=== PATIENT | female | born 1990 | race Caucasian/White ===

== ENCOUNTER 2017-09-02 10:05 | Day surgery (SDC) | payer BC, OTHER ==
[~2017-09-02 10:05] MED LIST: FENTANYL CITRATE INJ/PF 100 MCG/2 ML AMPUL ONE; MIDAZOLAM 2 MG/2 ML INJ ONE; PROPOFOL INJ 200 MG/20 ML VIAL IV ONE
[2017-09-02] MEDS ORDERED: PROPOFOL INJ 200 MG/20 ML VIAL IV ONE (11:16)
[2017-09-02 12:08] VITALS: BP 116/80
--- NOTE | 2017-09-02 13:21 | Operative Report ---
Operative Report DATE OF SURGERY: 09/02/17 Operative Report: The risks, benefits and alternatives of the procedure including risks of bleeding, perforation requiring surgery are explained to the patient in detail and informed consent was obtained. Patient was taken to the endoscopy suite and placed in the left, lateral decubital position. Timeout was called. Propofol medications administered. A rectal examination is done which did not reveal any masses, tears or fissures. An Olympus videoscope was inserted into the patient's rectum. The scope was then carefully advanced all the way to the cecum. The cecum was identified by the usual anatomical landmarks including the ileocecal valve as well as the appendiceal office. Photodocumentation is obtained. The scope was then sequentially pulled back via the various segments of the colon including the ascending colon, hepatic flexure, transverse colon, splenic flexure, descending colon and finding to the rectosigmoid portions of the colon. Retroflexion maneuvers performed. The risks benefits and alternatives of the procedure explained to the patient in detail and informed consent is obtained .A GIF Olympus video scope was inserted into the patient's mouth and hypopharynx, the esophagus is identified intubated and insufflated, the scope was then advanced through the esophagus stomach and duodenum, retroflexion maneuver is done ,the esophagus stomach and first and second portions of the duodenum examined PREOPERATIVE DIAGNOSIS: Blood in stool. Epigastric pain POSTOPERATIVE DIAGNOSIS: Colon polyp that is snared and removed. This was noted in the sigmoid area. Another colon polyp biopsy to remove. Right side colon Inflammation status post biopsy. Internal hemorrhoids. Gastritis status post biopsy rule out Helicobacter pylori OPERATION: Colonoscopy with snare polypectomy. Colonoscopy with biopsy. EGD with biopsy SURGEON: JERRY COHEN ANESTHESIA: LMAC TISSUE REMOVED OR ALTERED: As noted above. COMPLICATIONS: None. ESTIMATED BLOOD LOSS: None. INTRAOPERATIVE FINDINGS: As noted above. PROCEDURE: Patient tolerated procedure well. No immediate postprocedure complications are noted. Patient discharged in good condition. Discharge date 09/02/2017. Discharge diet: Regular. Discharge activity: Regular. 2-3 week follow-up to discuss findings. 3 year surveillance colonoscopy. Patient is instructed to call the office or proceed to the emergency room should there be any further problems or questions. We will wait on pathology.
== END 2017-09-02 11:58 | disposition home or self-care (01) ==
LOC: END 10:05
PROVIDERS: ATTEND Internal Medicine Gastroenterology
PROC: 0DB68ZX Excision of Stomach, Via Natural or Artificial Opening Endoscopic, Diagnostic (ICD-10-PCS; principal; 2017-09-02 13:00)
PROC: 0DBF8ZX Excision of Right Large Intestine, Via Natural or Artificial Opening Endoscopic, Diagnostic (ICD-10-PCS; 2017-09-02 13:00)
PROC: 0DBN8ZX Excision of Sigmoid Colon, Via Natural or Artificial Opening Endoscopic, Diagnostic (ICD-10-PCS; 2017-09-02 13:00)
DX: K62.5 Hemorrhage of anus and rectum (principal); K64.8 Other hemorrhoids; K63.5 Polyp of colon; K52.9 Noninfective gastroenteritis and colitis, unspecified; K29.50 Unspecified chronic gastritis without bleeding; D12.5 Benign neoplasm of sigmoid colon; Z79.899 Other long term (current) drug therapy
CPT/HCPCS: 43239; 45380; 45385; 81025; 88305 ×2; J2704; 811; J2250; J3010

== ENCOUNTER 2017-09-06 10:00 | Observation (INO) | payer OTHER ==
--- NOTE | 2017-09-06 10:28 | ER Document Report ---
ED Medical Screen (RME) - General Chief Complaint: Rectal Bleeding Stated Complaint: RECTAL BLEEDING Time Seen by Provider: 09/06/17 10:24 Mode of Arrival: Ambulatory Information source: Patient Notes: 27-year-old female who had recent endoscopy colonoscopy with polyp removal in colon and stomach as well as internal hemorrhoids presents with complaints of rectal bleeding. Patient notes she contacted her GI specialist Dr. Castillo who stated that this is normal and that she has internal hemorrhoids however today she began having further clots Patient notes she feels dizzy I have greeted and performed a rapid initial assessment of this patient. A comprehensive ED assessment and evaluation of the patient, analysis of test results and completion of the medical decision making process will be conducted by additional ED providers. PHYSICAL EXAMINATION: GENERAL: Well-appearing, well-nourished and in no acute distress. HEAD: Atraumatic, normocephalic. EYES: Pupils equal round extraocular movements intact, conjunctiva are normal. ENT: Nares patent NECK: Normal range of motion LUNGS: No respiratory distress Musculoskeletal: Normal range of motion NEUROLOGICAL: Normal speech, normal gait. PSYCH: Normal mood, normal affect. SKIN: Warm, Dry, normal turgor, no rashes or lesions noted. TRAVEL OUTSIDE OF THE [place] IN LAST 30 DAYS: No - Related Data Allergies/Adverse Reactions: No Known Allergies Allergy (Verified 09/02/17 10:10) Past Medical History - Social History Chew tobacco use (# tins/day): No Frequency of alcohol use: Occasional Drug Abuse: None - Past Medical History Cardiac Medical History: Denies: Hx Coronary Artery Disease, Hx Heart Attack, Hx Hypertension Pulmonary Medical History: Denies: Hx Asthma, Hx Bronchitis, Hx COPD, Hx Pneumonia Neurological Medical History: Denies: Hx Cerebrovascular Accident, Hx Seizures Renal/ Medical History: Denies: Hx Peritoneal Dialysis Musculoskeltal Medical History: Denies Hx Arthritis Past Surgical History: Reports: Hx Tonsillectomy - T&A - Immunizations Hx Diphtheria, Pertussis, Tetanus Vaccination: Yes Influenza Administration Date for 05/2017 - 10/2017 Season: 06/19/17
[2017-09-06 10:56] LABS: ABSOLUTE LYMPHOCYTES (AUTO) 1.4 10^3/uL (0.5-4.7); ABSOLUTE MONOCYTES (AUTO) 0.5 10^3/uL (0.1-1.4); ABSOLUTE NEUT (AUTO) 5.2 10^3/uL (1.7-8.2); BASOPHILS % (AUTO) 0.5 % (0-2); EOSINOPHILS % (AUTO) 0.1 % (0-6); HEMATOCRIT 44.5 % (36.0-47.0); HEMOGLOBIN 15.4 g/dL (12.0-15.5); LYMPHOCYTES % (AUTO) 19.1 % (13-45); MEAN CORPUSCULAR HEMOGLOBIN 32.9 pg (27.0-33.4); MEAN CORPUSCULAR HGB CONC 34.7 g/dL (32.0-36.0); MEAN CORPUSCULAR VOLUME 95 fl (80-97); MONOCYTES % (AUTO) 7.4 % (3-13); PLATELET COUNT 331 10^3/uL (150-450); RED BLOOD COUNT 4.68 10^6/uL (3.72-5.28); RED CELL DISTRIBUTION WIDTH 13.3 % (11.5-14.0); SEGMENTED NEUTROPHILS % (AUTO) 72.9 % (42-78); TOTAL CELLS COUNTED % (AUTO) 100 %; WHITE BLOOD COUNT 7.2 10^3/uL (4.0-10.5)
[2017-09-06 11:01] LABS: INTERNATIONAL RATION (INR) 0.93; PROTHROMBIN TIME 13.1 SEC (11.4-15.4)
[2017-09-06 11:20] LABS: ALANINE AMINOTRANSFERASE 34 U/L (9-52); ALBUMIN 4.8 g/dL (3.5-5.0); ALKALINE PHOSPHATASE 88 U/L (38-126); ANION GAP 12 (5-19); ASPARTATE AMINO TRANSFERASE 23 U/L (14-36); BILIRUBIN,DIRECT 0.3 mg/dL (0.0-0.4); BILIRUBIN,TOTAL 1.2 mg/dL (0.2-1.3); BLOOD UREA NITROGEN 11 mg/dL (7-20); CALCIUM 10.6 mg/dL (8.4-10.2); CARBON DIOXIDE 26 mmol/L (22-30); CHLORIDE 104 mmol/L (98-107); GLUCOSE 85 mg/dL (75-110); POTASSIUM 4.2 mmol/L (3.6-5.0); SODIUM 141.5 mmol/L (137-145); TOTAL PROTEIN 7.6 g/dL (6.3-8.2)
--- NOTE | 2017-09-06 11:50 | ER Document Report ---
ED GI Bleed / Rectal Pain - General Mode of Arrival: Ambulatory Information source: Patient TRAVEL OUTSIDE OF THE [place] IN LAST 30 DAYS: No <KILO LYNCH - Last Filed: 09/06/17 14:51> <TARIQ ROSSI - Last Filed: 09/06/17 18:53> - General Chief Complaint: Rectal Bleeding Stated Complaint: RECTAL BLEEDING Time Seen by Provider: 09/06/17 10:24 Notes: Patient is a 27 year old female that presents to the emergency department today with complaints of rectal bleeding. Patient had a colonoscopy and endoscopy 2 days ago secondary to abdominal pain with rectal bleeding. Patient states yesterday she had a bowel movement with blood mixed in with the stool but today the bleeding has increased and has turned into blood with clots with no stool. Patient states she had 2 polyps removed during her colonoscopy. Patient states when she closes her eyes or stands up she feels dizzy and lightheaded. Patient does admit to using ibuprofen p.m. on a nightly basis. Patient complains of abdominal pain and a headache associated with this rectal bleeding. Patient has a history of migraine headaches but she states this headache today feels "slightly different" because it is "only on one side". Patient denies any shortness of breath. (KILO LYNCH) - Related Data Allergies/Adverse Reactions: No Known Allergies Allergy (Verified 09/02/17 10:10) Past Medical History - General Information source: Patient - Social History Smoking Status: Never Smoker Cigarette use (# per day): No Chew tobacco use (# tins/day): No Frequency of alcohol use: Occasional Drug Abuse: None Lives with: Family Family History: Reviewed & Not Pertinent Patient has suicidal ideation: No Patient has homicidal ideation: No Renal/ Medical History: Denies: Hx Peritoneal Dialysis GI Medical History: Reports: Hx Colonoscopy - 2 polyps removed, Hx Endoscopy Past Surgical History: Reports: Hx Tonsillectomy - T&A - Immunizations Hx Diphtheria, Pertussis, Tetanus Vaccination: Yes <KILO LYNCH - Last Filed: 09/06/17 14:51> Review of Systems - Review of Systems Constitutional: No symptoms reported EENT: No symptoms reported Cardiovascular: See HPI, Dizziness, Lightheaded Respiratory: denies: Short of breath Gastrointestinal: See HPI, Abdominal pain, Rectal bleeding Genitourinary: No symptoms reported Female Genitourinary: No symptoms reported Musculoskeletal: No symptoms reported Skin: No symptoms reported Hematologic/Lymphatic: No symptoms reported Neurological/Psychological: See HPI, Headaches -: Yes All other systems reviewed and negative <KILO LYNCH - Last Filed: 09/06/17 14:51> Physical Exam <KILO LYNCH - Last Filed: 09/06/17 14:51> <TARIQ ROSSI - Last Filed: 09/06/17 18:53> - Vital signs Vitals: Temp Pulse Resp BP Pulse Ox 98.4 F 88 18 128/81 H 99 09/06/17 10:12 09/06/17 10:12 09/06/17 10:12 09/06/17 10:12 09/06/17 10:12 - Notes Notes: PHYSICAL EXAM GENERAL: Alert, interacts well. No acute distress. HEAD: Normocephalic, atraumatic. EYES: Pupils equal, round, and reactive to light. Extraocular movements intact. ENT: Oral mucosa moist, tongue midline. NECK: Full range of motion. Supple. Trachea midline. LUNGS: Clear to auscultation bilaterally, no wheezes, rales, or rhonchi. No respiratory distress. HEART: Regular rate and rhythm. No murmurs, gallops, or rubs. ABDOMEN: Soft, mild left lower quadrant tenderness with palpation, no guarding, rigidity, or rebound. Non-distended. Bowel sounds present in all 4 quadrants. RECTAL: Non-thrombosed external hemorrhoid with no active bleeding, trace amount of blood in the rectal vault, no heavy bleeding, no stool. EXTREMITIES: Moves all 4 extremities spontaneously. No edema, radial and dorsalis pedis pulses 2/4 bilaterally. No cyanosis. NEUROLOGICAL: Alert and oriented x3. Normal speech. PSYCH: Normal affect, normal mood. SKIN: Warm, dry, normal turgor. No rashes or lesions noted. (KILO LYNCH) Course - Laboratory Result Diagrams: 09/06/17 10:39 09/06/17 10:39 <KILO LYNCH - Last Filed: 09/06/17 14:51> - Laboratory Result Diagrams: 09/06/17 10:39 09/06/17 10:39 <TARIQ ROSSI - Last Filed: 09/06/17 18:53> - Re-evaluation Re-evalutation: 09/06/17 12:28 CBC unremarkable, no anemia, coags normal, CMP unremarkable. Rectal examination reveals trace blood however patient has had multiple episodes of bright red blood in the toilet while in the emergency department. Discussed case with Dr. Castillo, he is agreeable to consulting on this case, thinks it is reasonable to admit her overnight and trend her hemoglobin given her lightheadedness and dizziness and ongoing bleeding. I will discuss this case with the hospitalist for possible admission. 09/06/17 12:[address] Rodriguez, accepts the patient to her service as observation. ( TARIQ ROSSI) - Vital Signs Vital signs: Temp Pulse Resp BP Pulse Ox 98.4 F 93 17 122/69 100 09/06/17 15:58 09/06/17 15:58 09/06/17 15:58 09/06/17 15:58 09/06/17 15:58 - Laboratory Laboratory results interpreted by me: 09/06/17 10:39 Calcium 10.6 H Discharge <KILO LYNCH - Last Filed: 09/06/17 14:51> - Discharge Admitting Provider: Hospitalist - Jennifer Unit Admitted: Medical Floor <TARIQ ROSSI - Last Filed: 09/06/17 18:53> - Discharge Clinical Impression: Rectal bleeding Condition: Fair Disposition: ADMITTED OBSERVATION Scribe Attestation: 09/06/17 18:53 I personally performed the services described in the documentation, reviewed and edited the documentation which was dictated to the scribe in my presence, and it accurately records my words and actions. (TARIQ ROSSI) Scribe Documentation - Scribe Written by Scribe:: Cristian Burdick, 09/06/2017 1429 acting as scribe for :: Sindy <KILO LYNCH - Last Filed: 09/06/17 14:51>
[2017-09-06] MEDS ORDERED: ACETAMINOPHEN 325 MG TABLET PO ONE ×2 (12:29→15:45)
[2017-09-06] MEDS ORDERED: ONDANSETRON 4 MG TAB.RAPDIS PO PRN (12:48)
[2017-09-06] MEDS ORDERED: TEMAZEPAM 7.5 MG CAPSULE PO PRN (12:48)
[2017-09-06] MEDS ORDERED: OXYCODONE-ACETAMINOPHEN 5-325 MG TABLET PO PRN (12:48)
[2017-09-06] MEDS ORDERED: MAG HYDROX/AL HYDROX/SIMETH SUSP 30 ML UDCUP PO PRN (12:48)
[2017-09-06] MEDS ORDERED: ONDANSETRON HCL INJ/PF 4 MG/2 ML SDV IV PRN (12:48)
[2017-09-06] MEDS ORDERED: PRAMOXINE HCL/MINERAL OIL/ZNOX OINT 28.3 GM PR PRN (14:56)
--- NOTE | 2017-09-06 15:03 | PDOC H&P ---
History of Present Illness Admission Date/PCP: 09/06/17 13:24 Patient complains of: Rectal bleeding History of Present Illness: BRE DEGROOT is a 27 year old female with no significant past medical history who underwent an EGD and colonoscopy by Dr. Castillo on Saturday for complaint of generalized abdominal pain and gastrocolic reflex. Per the patient, the colonoscopy revealed polyps that were biopsied as well as internal and external hemorrhoids. States that she began having stool streaked with blood shortly with a colonoscopy which have progressively worsened until this morning when she noted that her bowel movements contained blood only with clots and no stool. She states that she has had at least 7 episodes of bloody bowel movements today. She also reports feeling dizzy this morning, however, later in the assessment states that this is her typical vertigo-like symptoms but is associated with her typical headaches/migraine. She normally takes Motrin for her migraines and does take nightly in addition to at least 2 glasses of wine. She denies headache, dizziness, shortness of breath, palpitations, or abdominal pain at present. Initial evaluation in the emergency department is unremarkable with stable vital signs and a hemoglobin of 15.4, normal coags, and a normal chemistry. Given the copious amounts of bright red rectum today the patient will be admitted under observational status overnight to trend hemoglobin. Past Medical History Cardiac Medical History: Reports: None Denies: Coronary Artery Disease, Myocardial Infarction, Hypertension Pulmonary Medical History: Reports: None Denies: Asthma, Bronchitis, Chronic Obstructive Pulmonary Disease (COPD), Pneumonia Neurological Medical History: Reports: Migraine Denies: Seizures Endocrine Medical History: Reports: None Renal/ Medical History: Reports: None Malignancy Medical History: Reports: None GI Medical History: Reports: None Musculoskeltal Medical History: Reports: None Denies: Arthritis Skin Medical History: Reports: None Psychiatric Medical History: Reports: None Traumatic Medical History: Reports: None Hematology: Reports: None Denies: Anemia Infectious Medical History: Reports: None Past Surgical History Past Surgical History: Reports: Tonsillectomy - T&A Social History Information Source: Patient Lives with: Family Smoking Status: Never Smoker Frequency of Alcohol Use: Heavy Hx Recreational Drug Use: No Hx Prescription Drug Abuse: No - Advance Directive Resuscitation Status: Full Code Surrogate healthcare decision maker:: Kit Miramontes; significant other Family History Family History: Other - Ulcerative colitis diverticulitis, gluten allergy Parental Family History Reviewed: Yes Children Family History Reviewed: Yes Sibling(s) Family History Reviewed.: Yes Medication/Allergy Home Medications: Esomeprazole Mag Trihydrate [Nexium] 40 mg PO ACBRKFST 09/06/17 Ibuprofen/Diphenhydramine HCl [Ibuprofen Pm Softgel] 2 each PO QHS 09/06/17 Allergies/Adverse Reactions: No Known Allergies Allergy (Verified 09/02/17 10:10) Review of Systems Constitutional: ABSENT: anorexia, chills, fever(s), headache(s), night sweats, weakness, weight gain, weight loss Eyes: ABSENT: visual disturbances Ears: ABSENT: hearing changes Nose, Mouth, and Throat: PRESENT: headache(s), vertigo. ABSENT: mouth pain, sore throat Cardiovascular: ABSENT: chest pain, dyspnea on exertion, edema, orthropnea, palpitations Respiratory: ABSENT: cough, hemoptysis Gastrointestinal: PRESENT: abdominal pain, other - Bright red blood per rectum. ABSENT: constipation, diarrhea, hematemesis, hematochezia, nausea, vomiting Genitourinary: ABSENT: dysuria, hematuria Musculoskeletal: ABSENT: joint swelling Integumentary: ABSENT: rash, wounds Neurological: ABSENT: abnormal gait, abnormal speech, confusion, dizziness, focal weakness, syncope Psychiatric: ABSENT: anxiety, depression, homidical ideation, suicidal ideation Endocrine: ABSENT: cold intolerance, heat intolerance, polydipsia, polyuria Hematologic/Lymphatic: ABSENT: easy bleeding, easy bruising Physical Exam Vital Signs: Temp Pulse Resp BP Pulse Ox 98.4 F 88 18 128/81 H 99 09/06/17 10:12 09/06/17 10:12 09/06/17 10:12 09/06/17 10:12 09/06/17 10:12 Intake & Output 09/05/17 09/06/17 09/07/17 06:59 06:59 06:59 Weight 95.1 kg General appearance: PRESENT: no acute distress, well-developed, well-nourished Head exam: PRESENT: atraumatic, normocephalic Eye exam: PRESENT: conjunctiva pink, EOMI, PERRLA. ABSENT: scleral icterus Ear exam: PRESENT: normal external ear exam Mouth exam: PRESENT: moist, tongue midline Neck exam: ABSENT: carotid bruit, JVD, lymphadenopathy, thyromegaly Respiratory exam: PRESENT: clear to auscultation renetta. ABSENT: rales, rhonchi, wheezes Cardiovascular exam: PRESENT: RRR. ABSENT: diastolic murmur, rubs, systolic murmur Pulses: PRESENT: normal dorsalis pedis pul Vascular exam: PRESENT: normal capillary refill GI/Abdominal exam: PRESENT: normal bowel sounds, soft. ABSENT: distended, guarding, mass, organolmegaly, rebound, tenderness Rectal exam: PRESENT: deferred Extremities exam: PRESENT: full ROM. ABSENT: calf tenderness, clubbing, pedal edema Neurological exam: PRESENT: alert, awake, oriented to person, oriented to place , oriented to time, oriented to situation, CN II-XII grossly intact. ABSENT: motor sensory deficit Psychiatric exam: PRESENT: appropriate affect, normal mood. ABSENT: homicidal ideation, suicidal ideation Skin exam: PRESENT: dry, intact, warm. ABSENT: cyanosis, rash Assessment & Plan - Diagnosis (1) Rectal bleeding Is this a current diagnosis for this admission?: Yes Plan: The patient is very and seeing bright red blood per rectum 4 days status post colonoscopy with polyp removal. The patient was noted to have internal and external hemorrhoids at that time. Will be admitted to the floor under observational status. Obtain hemoglobin in the morning to establish stability; likely will be able to be discharged at that time to follow-up as scheduled with Dr. Castillo's office. Continue PPI. (2) Hemorrhoids Qualifiers: Hemorrhoid type: unspecified Qualified Code(s): K64.9 - Unspecified hemorrhoids Plan: Internal and external hemorrhoids as noted by colonoscopy on 09/02/16. We will provide Tucks hemorrhoidal ointment as needed. Remaining plan as above. (3) Alcohol dependence Qualifiers: Substance use status: uncomplicated Qualified Code(s): F10.20 - Alcohol dependence, uncomplicated Is this a current diagnosis for this admission?: Yes Plan: The patient reports that she drinks at least 2 glasses of wine nightly. Discussed alcohol reduction. We will monitor for evidence of alcohol withdrawal and treat appropriately with scheduled and as needed benzodiazepines. - Time Time Spent: 50 to 70 Minutes Medications reviewed and adjusted accordingly: Yes Anticipated discharge: Home Within: within 24 hours
[2017-09-06] MEDS ORDERED: GLYCERIN/WITCH HAZEL LEAF 1 EACH MED..PAD TOP PRN (15:16)
[2017-09-07] MEDS ORDERED: LANSOPRAZOLE 30 MG TAB.RAP.DR PO SCH (06:00)
[2017-09-07 07:13] LABS: HEMATOCRIT 39.9 % (36.0-47.0); HEMOGLOBIN 13.9 g/dL (12.0-15.5); MEAN CORPUSCULAR HEMOGLOBIN 33.1 pg (27.0-33.4); MEAN CORPUSCULAR HGB CONC 34.9 g/dL (32.0-36.0); MEAN CORPUSCULAR VOLUME 95 fl (80-97); PLATELET COUNT 277 10^3/uL (150-450); WHITE BLOOD COUNT 4.2 10^3/uL (4.0-10.5)
[2017-09-07 07:37] LABS: ANION GAP 10 (5-19); BLOOD UREA NITROGEN 10 mg/dL (7-20); CALCIUM 9.7 mg/dL (8.4-10.2); CARBON DIOXIDE 25 mmol/L (22-30); CHLORIDE 104 mmol/L (98-107); GLUCOSE 91 mg/dL (75-110); MAGNESIUM 1.9 mg/dL (1.6-2.3); PHOSPHORUS 3.4 mg/dL (2.5-4.5); POTASSIUM 4.3 mmol/L (3.6-5.0); SODIUM 139.4 mmol/L (137-145)
[2017-09-07] MEDS ORDERED: DOCUSATE SODIUM 100 MG CAPSULE PO SCH (10:00)
[2017-09-07 12:33] VITALS: BP 111/78
[2017-09-07 13:48] LABS: HEMATOCRIT 42.4 % (36.0-47.0); HEMOGLOBIN 14.3 g/dL (12.0-15.5); MEAN CORPUSCULAR HEMOGLOBIN 32.5 pg (27.0-33.4); MEAN CORPUSCULAR HGB CONC 33.8 g/dL (32.0-36.0); MEAN CORPUSCULAR VOLUME 96 fl (80-97); PLATELET COUNT 317 10^3/uL (150-450); RED BLOOD COUNT 4.41 10^6/uL (3.72-5.28); RED CELL DISTRIBUTION WIDTH 13.1 % (11.5-14.0); WHITE BLOOD COUNT 7.3 10^3/uL (4.0-10.5)
--- NOTE | 2017-09-07 14:18 | PDOC DISCHARGE SUMMARY ---
General - Admit/Disc Date/PCP Admission Date/Primary Care Provider: 09/06/17 13:24 Discharge Date: 09/07/17 - Discharge Diagnosis (1) Rectal bleeding Is this a current diagnosis for this admission?: Yes (3) Alcohol dependence Is this a current diagnosis for this admission?: Yes - Additional Information Resuscitation Status: Full Code Discharge Diet: As Tolerated Discharge Activity: Activity As Tolerated, Slowly Increase Activity Prescriptions: Docusate Sodium [Colace 100 mg Capsule] 100 mg PO DAILY #30 capsule Home Medications: Esomeprazole Mag Trihydrate [Nexium] 40 mg PO ACBRKFST 09/06/17 Docusate Sodium [Colace 100 mg Capsule] 100 mg PO DAILY #30 capsule 09/07/17 History of Present Illness History of Present Illness: BRE DEGROOT is a 27 year old female with no significant past medical history who underwent an EGD and colonoscopy by Dr. Castillo on Saturday for complaint of generalized abdominal pain and gastrocolic reflex. Per the patient, the colonoscopy revealed polyps that were biopsied as well as internal and external hemorrhoids. States that she began having stool streaked with blood shortly with a colonoscopy which have progressively worsened until this morning when she noted that her bowel movements contained blood only with clots and no stool. She states that she has had at least 7 episodes of bloody bowel movements today. She also reports feeling dizzy this morning, however, later in the assessment states that this is her typical vertigo-like symptoms but is associated with her typical headaches/migraine. She normally takes Motrin for her migraines and does take nightly in addition to at least 2 glasses of wine. She denies headache, dizziness, shortness of breath, palpitations, or abdominal pain at present. Initial evaluation in the emergency department is unremarkable with stable vital signs and a hemoglobin of 15.4, normal coags, and a normal chemistry. Given the copious amounts of bright red rectum today the patient will be admitted under observational status overnight to trend hemoglobin. Hospital Course Hospital Course: The patient was admitted overnight for observation of her bright red blood per rectum secondary to internal and external hemorrhoids. Dr. Castillo, her outside solar sales consultant, was contacted who recommended that she be observed overnight and hemoglobin monitored. The patient did continue to have rectal bleeding, although this did decrease in quantity and became dark in color. Her hemoglobin was trended and appears to be stable at about 14. At time of discharge, the patient is pain-free and with stable vital signs. She is instructed to discontinue NSAIDs and alcohol intake. Recommend begin a stool softener. She is advised to keep her follow-up appointment as it is scheduled with Dr. Castillo on Saturday. Physical Exam Vital Signs: Temp Pulse Resp BP Pulse Ox 97.9 F 102 H 18 111/78 100 09/07/17 11:46 09/07/17 11:46 09/07/17 11:46 09/07/17 11:46 09/07/17 11:46 Intake & Output 09/06/17 09/07/17 09/08/17 06:59 06:59 06:59 Weight 95.1 kg General appearance: PRESENT: no acute distress, well-developed, well-nourished, other - overweight Head exam: PRESENT: atraumatic, normocephalic Eye exam: PRESENT: conjunctiva pink, EOMI, PERRLA. ABSENT: scleral icterus Ear exam: PRESENT: normal external ear exam Mouth exam: PRESENT: moist, tongue midline Neck exam: ABSENT: carotid bruit, JVD, lymphadenopathy, thyromegaly Respiratory exam: PRESENT: clear to auscultation renetta. ABSENT: rales, rhonchi, wheezes Cardiovascular exam: PRESENT: RRR. ABSENT: diastolic murmur, rubs, systolic murmur Pulses: PRESENT: normal dorsalis pedis pul Vascular exam: PRESENT: normal capillary refill GI/Abdominal exam: PRESENT: normal bowel sounds, soft. ABSENT: distended, guarding, mass, organolmegaly, rebound, tenderness Rectal exam: PRESENT: deferred Extremities exam: PRESENT: full ROM. ABSENT: calf tenderness, clubbing, pedal edema Neurological exam: PRESENT: alert, awake, oriented to person, oriented to place , oriented to time, oriented to situation, CN II-XII grossly intact. ABSENT: motor sensory deficit Psychiatric exam: PRESENT: appropriate affect, normal mood. ABSENT: homicidal ideation, suicidal ideation Skin exam: PRESENT: dry, intact, warm. ABSENT: cyanosis, rash Results Laboratory Results: 09/07/17 13:25 09/07/17 06:21 09/07/17 09/07/17 09/07/17 06:21 06:21 13:25 WBC 4.2 7.3 RBC 4.20 4.41 Hgb 13.9 14.3 Hct 39.9 42.4 MCV 95 96 MCH 33.1 32.5 MCHC 34.9 33.8 RDW 13.0 13.1 Plt Count 277 317 Sodium 139.4 Potassium 4.3 Chloride 104 Carbon Dioxide 25 Anion Gap 10 BUN 10 Creatinine 0.62 Est GFR ( Amer) > 60 Est GFR (Non-Af Amer) > 60 Glucose 91 Calcium 9.7 Phosphorus 3.4 Magnesium 1.9 Qualifiers PATEINT BEING DISCHARGED WITH ANY OF THE FOLLOWING DIAGNOSIS?: No
== END 2017-09-07 15:46 | disposition home or self-care (01) ==
LOC: ER 10:00 → EH 13:24 → 4N 15:12
PROVIDERS: ADMIT Internal Medicine; ATTEND Internal Medicine
DX: K62.5 Hemorrhage of anus and rectum (principal); F10.20 Alcohol dependence, uncomplicated; R42 Dizziness and giddiness; R51 Headache; K64.4 Residual hemorrhoidal skin tags; K64.8 Other hemorrhoids; Z83.79 Family history of other diseases of the digestive system; Z86.010 Personal history of colon polyps
CPT/HCPCS: 99284; 36415 ×2; 87045; 87205; 87209; 83735; 84100; 87177; 85025; 85027; 85610; 82272; 80048; 80053; G0378 ×3; J3490

== ENCOUNTER 2017-09-09 13:35 | Day surgery (SDC) | payer OTHER ==
[2017-09-09] MEDS ORDERED: ONDANSETRON HCL INJ/PF 4 MG/2 ML SDV ONE ×2 (13:43→15:08)
[2017-09-09] MEDS ORDERED: DIPHENHYDRAMINE HCL 50 MG/ML VIAL ONE (13:43)
[2017-09-09] MEDS ORDERED: NALOXONE HCL INJ/PF 0.4 MG/1 ML SDV ONE (13:43)
[2017-09-09] MEDS ORDERED: GLUCAGON,HUMAN RECOMB 1 MG INJ ONE (13:44)
[2017-09-09] MEDS ORDERED: FLUMAZENIL INJ 0.5 MG/5 ML VIAL ONE (13:44)
[2017-09-09] MEDS ORDERED: EPINEPHRINE INJ 1 MG/10 ML DISP.SYRIN ONE (13:44)
[2017-09-09] MEDS: MIDAZOLAM 2 MG/2 ML INJ ONE ×4 (14:11→14:20)
[2017-09-09] MEDS: FENTANYL CITRATE INJ/PF 100 MCG/2 ML AMPUL ONE ×2 (14:13→14:18)
--- NOTE | 2017-09-09 14:40 | Operative Report ---
Operative Report DATE OF SURGERY: 09/09/17 Operative Report: The risk , benefits and alternatives of the procedure are explained to the patient in detail patient is taken to the EU unit and placed in a left lateral decubital position Time out is called and conscious sedation medications are provided A GIF scope is placed via the patient's rectum, there is some blood in her rectum the transition point is seen at the first valve of [place] there is a small clot on a ulcer the area is irrigated an Endoclip is placed the base of the ulcer good hemostasis is achieved no other sites of bleeding are noted the patient does have some internal hemorrhoids as well. PREOPERATIVE DIAGNOSIS: rectal bleeding POSTOPERATIVE DIAGNOSIS: rectal ulcer noted, Endoclip is placed OPERATION: flex sig with control of hemorrhage SURGEON: JERRY COHEN ANESTHESIA: Moderate Sedation - 6mg of Versed, 125mcg of Fentanyl are provided. Conscious sedation monitoring time is 30mins TISSUE REMOVED OR ALTERED: none COMPLICATIONS: none ESTIMATED BLOOD LOSS: none INTRAOPERATIVE FINDINGS: as noted above PROCEDURE: patient tolerated her procedure well no post procedure complications patient is discharged in good condition discharge date: 09/09/17 discharge activity : as tolerated discharge diet: as tolerated keep follow up appt to discuss results of pathology patient instructed to call if any other gross bleeding patient advised that stools may be blood tinged, but should not have any other clots further recommendations to follow
[2017-09-09] MEDS ORDERED: ACETAMINOPHEN 325 MG TABLET ONE (15:00)
[2017-09-09 15:45] VITALS: BP 104/75
== END 2017-09-09 15:55 | disposition home or self-care (01) ==
LOC: END 13:35
PROVIDERS: ATTEND Internal Medicine Gastroenterology
PROC: 0W3P8ZZ Control Bleeding in Gastrointestinal Tract, Via Natural or Artificial Opening Endoscopic (ICD-10-PCS; principal; 2017-09-09 14:00)
DX: K64.8 Other hemorrhoids (principal); K62.6 Ulcer of anus and rectum; K92.1 Melena
CPT/HCPCS: 45334; J2250; J3010; J2405; J0171; J1200; J1610; J2310; J3490

== ENCOUNTER 2018-02-21 09:34 | Emergency (ER) | payer OTHER ==
[2018-02-21] MEDS ORDERED: IBUPROFEN 600 MG TABLET PO ONE (10:08)
[2018-02-21] MEDS ORDERED: ACETAMINOPHEN 325 MG TABLET PO ONE (10:08)
[2018-02-21] MEDS ORDERED: AMPICILLIN SOD/SULBACTAM 3 GM VIAL IV ONE (10:08)
[2018-02-21] MEDS ORDERED: DEXAMETHASONE SOD PHOS INJ 10 MG/1 ML VIAL IV ONE (10:10)
--- NOTE | 2018-02-21 10:14 | ER Document Report ---
ED General - General Chief Complaint: Sore Throat Stated Complaint: SORE THROAT Time Seen by Provider: 02/21/18 09:58 Notes: 19-year-old female here with complaints of sore throat for the past 5 days. The day after it started, she went to [facility] and was told that it would eventually go away and that she should take ibuprofen. Today, since the symptoms have not improved she went to an urgent care and was told that she should come to the ER for further evaluation. Her pain is worse with swallowing however she is still able to swallow her saliva without difficulty. She has not had any fevers chills difficulty swallowing breathing facial swelling. TRAVEL OUTSIDE OF THE U.S. IN LAST 30 DAYS: No - Related Data Allergies/Adverse Reactions: No Known Allergies Allergy (Verified 02/21/18 09:35) Past Medical History - Social History Smoking Status: Never Smoker Chew tobacco use (# tins/day): No Frequency of alcohol use: Occasional Drug Abuse: None Family History: Other - Ulcerative colitis diverticulitis, gluten allergy Patient has suicidal ideation: No Patient has homicidal ideation: No - Past Medical History Cardiac Medical History: Denies: Hx Coronary Artery Disease, Hx Heart Attack, Hx Hypertension Pulmonary Medical History: Denies: Hx Asthma, Hx Bronchitis, Hx COPD, Hx Pneumonia Neurological Medical History: Reports: Hx Migraine. Denies: Hx Cerebrovascular Accident, Hx Seizures Renal/ Medical History: Denies: Hx Peritoneal Dialysis GI Medical History: Reports: Hx Colonoscopy - 2 polyps removed, Hx Endoscopy Musculoskeltal Medical History: Denies Hx Arthritis Past Surgical History: Reports: Hx Tonsillectomy - T&A - Immunizations Hx Diphtheria, Pertussis, Tetanus Vaccination: Yes Review of Systems - Review of Systems Notes: See history of present illness for pertinent positive review of systems; otherwise all review of systems have been reviewed and are negative Physical Exam - Vital signs Vitals: Temp Pulse Resp BP Pulse Ox 99.0 F 93 18 127/88 H 98 02/21/18 09:45 02/21/18 09:45 02/21/18 09:45 02/21/18 09:45 02/21/18 09:45 - Notes Notes: PHYSICAL EXAMINATION: GENERAL: Well-appearing and in no acute distress. HEAD: Atraumatic, normocephalic. EYES: Pupils equal round and reactive to light, extraocular movements intact, sclera anicteric, conjunctiva are normal. ENT: nares patent, oropharynx minimal erythema without exudates however there is a small amount of left peritonsillar swelling but no uvular deviation. Moist mucous membranes. Widely patent airway NECK: Normal range of motion, supple without lymphadenopathy LUNGS: CTAB and equal. No wheezes rales or rhonchi. HEART: Regular rate and rhythm without murmurs ABDOMEN: Soft, no tenderness. No facial grimacing/wincing upon palpation. No guarding, no rebound. EXTREMITIES: Normal range of motion, no pitting edema. No cyanosis. NEUROLOGICAL: Cranial nerves grossly intact. Normal sensory/motor exams. PSYCH: Normal mood, normal affect. SKIN: Warm, Dry, normal turgor, no rashes or lesions noted Course - Re-evaluation Re-evalutation: 02/21/18 10:13 MEDICAL DECISION MAKING: Concern for very mild and early peritonsillar abscess Her airway is widely patent and I have low concern for emergency medical condition at this time I will give her a dose of Unasyn and Decadron IV as well as pain medicine I have made her an appointment with Dr. 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 You have an appointment at 3:[address] Pantoja of ear nose and throat. Do not miss this appointment. Here is the address: [address]
[2018-02-21 11:25] VITALS: BP 118/76
== END 2018-02-21 11:21 | disposition home or self-care (01) ==
LOC: ER 09:34
DX: J02.9 Acute pharyngitis, unspecified (principal)
CPT/HCPCS: 99282; 96375; 96365; J0295; J1100

== ENCOUNTER 2018-04-11 09:05 | Emergency (ER) | payer OTHER ==
[2018-04-11 09:12] VITALS: BP 119/86
--- NOTE | 2018-04-11 09:41 | ER Document Report ---
HPI - HPI Patient complains to provider of: Right foot and ankle injury Onset: Yesterday Onset/Duration: Sudden Quality of pain: Achy Pain Level: 4 Context: Patient states she stepped off of a curb wrong and rolled her right foot and ankle. Patient complains of continued pain since then. Associated Symptoms: Other - Right foot and ankle. Exacerbated by: Standing, Movement, Walking Relieved by: Denies Similar symptoms previously: No Recently seen / treated by doctor: No - ROS ROS below otherwise negative: Yes Systems Reviewed and Negative: Yes All other systems reviewed and negative - CONSTITUTIONAL Constitutional: DENIES: Fever, Chills - GASTROINTESTINAL Gastrointestinal: DENIES: Nausea, Patient vomiting - MUSCULOSKELETAL Musculoskeletal: REPORTS: Extremity pain - Right ankle pain and foot pain, Swelling - DERM Skin Color: Normal Skin Problems: None Past Medical History - General Information source: Patient - Social History Smoking Status: Never Smoker Frequency of alcohol use: Occasional Drug Abuse: None 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 Denies: Hx Cerebrovascular Accident, Hx Seizures Renal/ Medical History: Denies: Hx Peritoneal Dialysis GI Medical History: Reports: Hx Colonoscopy - 2 polyps removed, Hx Endoscopy Musculoskeletal Medical History: Denies Hx Arthritis Past Surgical History: Reports: Hx Tonsillectomy - T&A - Immunizations Hx Diphtheria, Pertussis, Tetanus Vaccination: Yes Vertical Provider Document - CONSTITUTIONAL Agree With Documented VS: Yes Exam Limitations: No Limitations General Appearance: WD/WN, No Apparent Distress - INFECTION CONTROL TRAVEL OUTSIDE OF THE [place].S. IN LAST 30 DAYS: No - HEENT HEENT: Atraumatic, Normocephalic - NECK Neck: Normal Inspection - RESPIRATORY Respiratory: No Respiratory Distress - CARDIOVASCULAR Pulses: Normal: Dorsalis pedis - MUSCULOSKELETAL/EXTREMETIES Musculoskeletal/Extremeties: MAEW, FROM, Tender - Right ankle tenderness over bilateral malleolar area, 1+ edema to right ankle lateral malleolus. Patient with right medial midfoot tenderness, normal skin color and temperature overlying joints. No deformity, Edema - NEURO Level of Consciousness: Awake, Alert, Appropriate Motor/Sensory: No Motor Deficit - DERM Integumentary: Warm, Dry, No Rash Course - Vital Signs Vital signs: Temp Pulse Resp BP Pulse Ox 98.1 F 95 16 119/86 H 98 04/11/18 09:10 04/11/18 09:10 04/11/18 09:10 04/11/18 09:10 04/11/18 09:10 - Diagnostic Test Radiology reviewed: Pending, Image reviewed Procedures - Immobilization Right Ankle Pre-Proc Neuro Vasc Exam: Normal Immobilizer type: Ankle stirrup Performed by: PCT Post-Proc Neuro Vasc Exam: Normal Alignment checked and good: Yes Discharge - Discharge Clinical Impression: Right ankle sprain Qualifiers: Encounter type: initial encounter Involved ligament of ankle: unspecified ligament Qualified Code(s): S93.401A - Sprain of unspecified ligament of right ankle, initial encounter Foot pain Qualifiers: Laterality: right Qualified Code(s): M79.671 - Pain in right foot Condition: Stable Disposition: HOME, SELF-CARE Instructions: Ankle Stirrup Splint ([facility]), Use of Crutches ([facility]), Ice & Elevation ([facility]), Sprained Ankle ([facility]) Additional Instructions: Return immediately for any new or worsening symptoms Followup with your primary care provider, call tomorrow to make a followup appointment Weightbearing as tolerated Follow-up with orthopedics for any persistent pain or problems Prescriptions: Naproxen [Naprosyn 250 Nmg Tablet] 1 tab PO BID #14 tablet Forms: Return to Work Referrals: JENNIFER BENJAMIN PA-C [Primary Care Provider] - Follow up as needed [facility] [Provider Group] - Follow up as needed
--- NOTE | 2018-04-11 10:03 | RADIOLOGY REPORT (SQ) ---
EXAM DESCRIPTION: ANKLE RIGHT COMPLETE COMPLETED DATE/TIME: 04/11/2018 9:40 am REASON FOR STUDY: stepped off curb, rolled foot/ankle COMPARISON: None. NUMBER OF VIEWS: Three views. TECHNIQUE: AP, lateral, and oblique radiographic images acquired of the right ankle. LIMITATIONS: None. FINDINGS: MINERALIZATION: Normal. BONES: No acute fracture or dislocation. No worrisome bone lesions. JOINTS: No effusions. SOFT TISSUES: No soft tissue swelling. No foreign body. OTHER: No other significant finding. IMPRESSION: NEGATIVE STUDY OF THE RIGHT ANKLE. NO RADIOGRAPHIC EVIDENCE OF ACUTE INJURY. TECHNICAL DOCUMENTATION: JOB ID: [id number] [employer]- All Rights Reserved Reading location - IP/workstation name: [email or web address]
--- NOTE | 2018-04-11 10:03 | RADIOLOGY REPORT (SQ) ---
EXAM DESCRIPTION: FOOT RIGHT COMPLETE COMPLETED DATE/TIME: 04/11/2018 9:40 am REASON FOR STUDY: stepped off curb, rolled foot/ankle COMPARISON: None. NUMBER OF VIEWS: Three views. TECHNIQUE: AP, lateral and oblique radiographic images acquired of the right foot. LIMITATIONS: None. FINDINGS: MINERALIZATION: Normal. BONES: No acute fracture or dislocation. No worrisome bone lesions. JOINTS: No effusions. SOFT TISSUES: No soft tissue swelling. No foreign body. OTHER: No other significant finding. IMPRESSION: NEGATIVE STUDY OF THE RIGHT FOOT. NO RADIOGRAPHIC EVIDENCE OF ACUTE INJURY. TECHNICAL DOCUMENTATION: JOB ID: [id number] [employer]- All Rights Reserved Reading location - IP/workstation name: [email or web address]
== END 2018-04-11 10:04 | disposition home or self-care (01) ==
LOC: ER 09:05
DX: S93.401A Sprain of unspecified ligament of right ankle, initial encounter (principal); M79.671 Pain in right foot; X50.0XXA Overexertion from strenuous movement or load, initial encounter
CPT/HCPCS: 99283; 73610; 73630; L1902

== ENCOUNTER 2018-10-06 15:15 | Emergency (ER) | payer OTHER | END 2018-10-06 16:30 | disposition left against medical advice (07) | LOC: ER 15:15 | DX: Z53.21 Procedure and treatment not carried out due to patient leaving prior to being seen by health care provider (principal) ==

== ENCOUNTER → 2020-06-20 | Outpatient (CLI) | payer OTHER ==
[2020-06-20 13:52] VITALS: BP 118/71
--- NOTE | 2020-06-20 13:52 | ER RDC ASSESSMENT REPORT ---
Intake - In the Last 14 days Have you traveled outside [place]?: No Have you been in close contact with someone CONFIRMED: No Worked in Healthcare?: No - Symptoms Subjective Fever([place] feverish): No Chills: No Muscule Aches: Yes Runny Nose: No Sore Throat: No Cough (New or worsening chronic cough): Yes Shortness of breath: No Nausea or Vomiting: Yes Headache: No Abdominal Pain: No Diarrhea(3 or more loose stools in last 24 hours): Yes - Do you have any of the following Chronic lung disease: Asthma or emphysema or COPD: No Cystic Fibrosis: No Diabetes: No High Blood Pressure: No Cardiovascular Disease: No Chronic Kidney Disease: No Chronic Liver Disease: No Chronic blood disorder like Sickle Cell Disease: No Weak immune system due to disease or medication: No Neurologic condition that limits movement: No Developmental delay - Moderate to Severe: No Recent (within past 2 weeks) or current : No Morbid Obesity (>100 pounds over ideal weight): No Obesity Comment: Height 5 feet 7 inches weight 226 pounds - Objective Temperature: 98.7 F Pulse Rate: 100 Respiratory Rate: 16 Blood Pressure: 118/71 O2 Sat by Pulse Oximetry: 96 Objective: Given above, testing performed: If Testing Performed: Test Specimen Type Sent to General - General Information source: Patient Notes: Patient here at [facility] for Covid testing patient reports started to have symptoms on Saturday which included dry cough nausea diarrhea fatigue and loss of taste. Patient denies any known positive exposure to Covid that she is aware of [place] and employer recommended patient have Covid testing. Patient sees Dr. Cassidy PCP and will follow up. - Related Data Allergies/Adverse Reactions: No Known Allergies Allergy (Verified 02/21/18 09:35) Past Medical History - General Information source: Patient - Social History Smoking Status: Never Smoker Family History: Reviewed & Not Pertinent, Other - Ulcerative colitis diverticulitis, gluten allergy - Past Medical History Cardiac Medical History: Denies: Hx Coronary Artery Disease, Hx Heart Attack, Hx Hypertension Pulmonary Medical History: Denies: Hx Asthma, Hx Bronchitis, Hx COPD, Hx Pneumonia Neurological Medical History: Reports: Hx Migraine. Denies: Hx Cerebrovascular Accident, Hx Seizures Renal/ Medical History: Denies: Hx Peritoneal Dialysis GI Medical History: Reports: Hx Colonoscopy - 2 polyps removed, Hx Endoscopy Musculoskeletal Medical History: Denies Hx Arthritis Past Surgical History: Reports: Hx Tonsillectomy - T&A Physical Exam - General General appearance: Appears well, Alert In distress: None Notes: PHYSICAL EXAMINATION: GENERAL: Well-appearing and in no acute distress. HEAD: Atraumatic, normocephalic. EYES: sclera anicteric, conjunctiva are normal. ENT: nares patent. Moist mucous membranes. NECK: Normal range of motion, supple without lymphadenopathy LUNGS: CTAB and equal. No wheezes rales or rhonchi. Respirations even and unlabored lung sounds clear HEART: Regular rate and rhythm without murmurs ABDOMEN: Soft, nontender, normal bowel sounds, no guarding. EXTREMITIES: Normal range of motion, no pitting edema. No cyanosis. NEUROLOGICAL: Cranial nerves grossly intact. Normal speech. Normal gait. PSYCH: Normal mood, normal affect. SKIN: Warm, Dry, normal turgor, no rashes or lesions noted Diagnostic Results Laboratory Results: Patient informed of negative rapid strep and negative rapid flu results pending strep culture. Pending Covid testing results. Patient provided instructions regarding Covid include: As a person under investigation for Covid 19, the [place] department of Health and Human Services, division of public health advises you to adhere to the following guidance until your test results are reported to you. If your test result is positive, you will receive additional information from your provider and your local health department at that time. Remain at home until you are cleared by the health provider or public health authorities. Keep a log of visitors to your home, notify any visitors to your home of your isolation status. If you plan to move to a new address or leave the [facility], notify the local health department in your County. Call your doctor or seek care if you have an urgent medical need. Before seeking medical care, call ahead to get instructions from the provider before arriving at the medical office clinic or hospital. Notify them that you are being tested for the virus that causes Covid 19 so that arrangements can be made, as necessary, to prevent transmission to others in the healthcare setting. Next, notify the local health department in your county. If a medical emergency arises and you need to call 911, inform the first responders that you are being tested for the virus that causes Covid 19. Next, notify the local health department in your county. Patient Education/Counseling Counseling/Education: Patient presents with upper respiratory symptoms worrisome for possible Covid 19. Patient does not have emergency worring symptoms such as difficulty breathing, shortness of breath, chest pain, pressure, confusion or cyanosis. Braydon tucker appears suitable for discharge. Patient instructed to follow-up with PCP Dr. Wallace. To ED for persistent or worsening symptoms. Patient's vital signs are stable and patient is nontoxic in appearance. Good return precautions have been discussed with patient, patient verbalized understanding and is agreeable with discharge plan of care at this time. RDC Discharge - Discharge Condition: Stable Disposition: Home; Selfcare
[2020-06-20 15:54] LABS: A TYPE INFLUENZA AG NEGATIVE (NEGATIVE); B INFLUENZA AG NEGATIVE (NEGATIVE)
== END ==
LOC: RDC 13:01
PROVIDERS: ATTEND Nurse Practitioner Family
DX: Z20.828 Contact with and (suspected) exposure to other viral communicable diseases (principal); M79.18 Myalgia, other site; R05 Cough; R11.2 Nausea with vomiting, unspecified; R19.7 Diarrhea, unspecified
CPT/HCPCS: 87070; 87880; 87635; 87804; 99201; 99211; C9803

== ENCOUNTER 2020-07-27 15:25 | Emergency (ER) | payer OTHER ==
[2020-07-27 15:52] VITALS: BP 124/89
--- NOTE | 2020-07-27 16:01 | ER Document Report ---
ED Extremity Problem, Lower - General Chief Complaint: Foot Pain Stated Complaint: FOOT PAIN Time Seen by Provider: 07/27/20 15:48 Primary Care Provider: REMY BANKS JR, DO [ACTIVE PROVISIONAL STAFF] - Follow up as needed Notes: CHIEF COMPLAINT: Left ankle pain and popping HPI: 29-year-old female presenting to the emergency department complaining of left ankle pain and popping over the last week. Worse with weightbearing and walking. Has not taken any medications for the symptoms. Has not seen a primary care provider or orthopedic for the symptoms. No definitive injury. ROS: See HPI - all other systems were reviewed and are otherwise negative Constitutional: no fever Integumentary: no rash Allergy: no hives Musculoskeletal: + extremity pain or swelling Neurological: no numbness/tingling, no weakness MEDICATIONS: I agree with the patient medications as charted by the RN. ALLERGIES: I agree with the allergies as charted by the RN. PAST MEDICAL HISTORY/PAST SURGICAL HISTORY: Reviewed and agree as charted by RN. SOCIAL HISTORY: Reviewed and agree as charted by RN. FAMILY HISTORY: No significant familial comorbid conditions directly related to patient complaint EXAM: Reviewed vital signs as charted by RN. CONSTITUTIONAL: Alert and oriented and responds appropriately to questions. Well-appearing; well-nourished HEAD: Normocephalic; atraumatic EYES: Conjunctivae clear, sclerae non-icteric ENT: normal nose; no rhinorrhea; moist mucous membranes NECK: Supple without meningismus CARD: symmetric distal pulses RESP: Normal chest excursion without splinting or tachypnea ABD/GI: non-distended. BACK: The back appears normal EXT: Normal ROM in all joints; minimal tenderness on palpation of the anterior left ankle soft tissues. There is no visible bruising or swelling. No tendern ess directly over the medial or lateral malleolus of the left ankle. Dorsalis pedis and posterior tibial pulses are present in the left ankle and foot. Sensation is intact in the distal left lower extremity to touch; no cyanosis, no effusions, no edema SKIN: Normal color for age and race; warm; dry; good turgor; no acute lesions noted NEURO: Moves all extremities equally; Motor and sensory function intact PSYCH: The patient's mood and manner are appropriate. Grooming and personal hygiene are appropriate. MDM: 29-year-old female with discomfort around the left ankle with a popping sensation when walking. This is likely ligamentous or tendon. Will obtain an x-ray to evaluate bone structure if negative anticipate discharge home on anti- inflammatories ice with orthopedic referral TRAVEL OUTSIDE OF THE [place].S. IN LAST 30 DAYS: No - Related Data Allergies/Adverse Reactions: No Known Allergies Allergy (Verified 02/21/18 09:35) Past Medical History - Social History Smoking Status: Unknown if Ever Smoked Family History: Reviewed & Not Pertinent, Other - Ulcerative colitis diverticulitis, gluten allergy - Past Medical History Cardiac Medical History: Denies: Hx Coronary Artery Disease, Hx Heart Attack, Hx Hypertension Pulmonary Medical History: Denies: Hx Asthma, Hx Bronchitis, Hx COPD, Hx Pneumonia Neurological Medical History: Reports: Hx Migraine. Denies: Hx Cerebrovascular Accident, Hx Seizures Renal/ Medical History: Denies: Hx Peritoneal Dialysis GI Medical History: Reports: Hx Colonoscopy - 2 polyps removed, Hx Endoscopy Musculoskeletal Medical History: Denies Hx Arthritis Past Surgical History: Reports: Hx Tonsillectomy - T&A - Immunizations Hx Diphtheria, Pertussis, Tetanus Vaccination: Yes Physical Exam - Vital signs Vitals: Temp Pulse Resp BP Pulse Ox 98.3 F 86 16 124/89 H 100 07/27/20 15:51 07/27/20 15:51 07/27/20 15:51 07/27/20 15:51 07/27/20 15:51 Course - Re-evaluation Re-evalutation: 07/27/20 16:02 X-ray to my review does not show evidence of a significant fracture or bony abnormality. - Vital Signs Vital signs: Temp Pulse Resp BP Pulse Ox 98.3 F 86 16 124/89 H 100 07/27/20 15:51 07/27/20 15:51 07/27/20 15:51 07/27/20 15:51 07/27/20 15:51 - Laboratory Results Critical Laboratory Results Reviewed: No Critical Results - Radiology Results Critical Radiology Results Reviewed: No Critical Results Discharge - Discharge Clinical Impression: Ankle pain, left Qualifiers: Chronicity: acute Qualified Code(s): M25.572 - Pain in left ankle and joints of left foot Condition: Stable Disposition: HOME, SELF-CARE Additional Instructions: Make sure you are icing the ankle twice daily to help with swelling and inflammation. Take the Voltaren for pain. Your x-ray imaging did not show any acute bony abnormalities. This is likely a ligament or tendon issue. Follow-up with orthopedics call for appointment Prescriptions: Diclofenac Sodium [Voltaren 50 Mg Tablet.] 50 mg PO BID #20 tablet. Referrals: REMY BANKS JR, [ACTIVE PROVISIONAL STAFF] - Follow up as needed
--- NOTE | 2020-07-27 16:15 | RADIOLOGY REPORT (SQ) ---
EXAM DESCRIPTION: ANKLE LEFT COMPLETE IMAGES COMPLETED DATE/TIME: 07/27/2020 4:05 pm REASON FOR STUDY: pain COMPARISON: None. NUMBER OF VIEWS: Three views. TECHNIQUE: AP, lateral, and oblique radiographic images acquired of the left ankle. LIMITATIONS: None. FINDINGS: MINERALIZATION: Normal. BONES: No acute fracture or dislocation. No worrisome bone lesions. Small plantar calcaneal entheso phyte. JOINTS: No effusions. SOFT TISSUES: No soft tissue swelling. No foreign body. OTHER: No other significant finding. IMPRESSION: NEGATIVE STUDY OF THE LEFT ANKLE. NO RADIOGRAPHIC EVIDENCE OF ACUTE INJURY. TECHNICAL DOCUMENTATION: JOB ID: [id number] [employer]- All Rights Reserved Reading location - IP/workstation name: [email or web address]
== END 2020-07-27 16:19 | disposition home or self-care (01) ==
LOC: ER 15:25
DX: M25.572 Pain in left ankle and joints of left foot (principal); M79.89 Other specified soft tissue disorders
CPT/HCPCS: 99283

== ENCOUNTER 2020-08-14 12:12 | Emergency (ER) | payer OTHER ==
[2020-08-14] MEDS ORDERED: DEXAMETHASONE SOD PHOS INJ 10 MG/1 ML VIAL IV ONE (13:27)
--- NOTE | 2020-08-14 13:28 | ER Document Report ---
ED Medical Screen (RME) - General Chief Complaint: Sore Throat Stated Complaint: SORE THROAT,SWELLING Time Seen by Provider: 08/14/20 13:23 Mode of Arrival: Ambulatory Information source: Patient Notes: HPI; 30-year-old female presents to the emergency room complaining of a sore throat for the past 3 days. No fevers. States is able to swallow but is painful. Has been using [id number] Chloraseptic throat spray without relief. No COVID-19 exposure. PE: Alert and oriented x3. Lungs: Clear to auscultation without rales, rhonchi, wheezes. Heart: Regular rate rhythm without murmurs, rubs, gallops. Posterior pharyngeal erythema, questionable peritonsillar abscess noted to the left. No trismus unable to get full visualization in triage. Positive left anterior cervical lymphadenopathy. Muffled voice is handling her own secretions. I have greeted and performed a rapid initial assessment of this patient. A comprehensive ED assessment and evaluation of the patient, analysis of test results and completion of the medical decision making process will be conducted by additional ED providers. I have specifically instructed the patient or family members with the patient to immediately return to any nursing staff should anything change in the patient's condition or with their chief complaint. TRAVEL OUTSIDE OF THE [place] IN LAST 30 DAYS: No - Related Data Allergies/Adverse Reactions: No Known Allergies Allergy (Verified 02/21/18 09:35) Past Medical History - Past Medical History Cardiac Medical History: Denies: Hx Coronary Artery Disease, Hx Heart Attack, Hx Hypertension Pulmonary Medical History: Denies: Hx Asthma, Hx Bronchitis, Hx COPD, Hx Pneumonia Neurological Medical History: Reports: Hx Migraine. Denies: Hx Cerebrovascular Accident, Hx Seizures Renal/ Medical History: Denies: Hx Peritoneal Dialysis GI Medical History: Reports: Hx Colonoscopy - 2 polyps removed, Hx Endoscopy Musculoskeltal Medical History: Denies Hx Arthritis Past Surgical History: Reports: Hx Tonsillectomy - T&A - Immunizations Hx Diphtheria, Pertussis, Tetanus Vaccination: Yes Physical Exam - Vital signs Vitals: Temp Pulse Resp BP Pulse Ox 98.4 F 98 16 136/79 H 98 08/14/20 12:17 08/14/20 12:17 08/14/20 12:17 08/14/20 12:17 08/14/20 12:17 Course - Vital Signs Vital signs: Temp Pulse Resp BP Pulse Ox 98.4 F 98 16 136/79 H 98 08/14/20 12:17 08/14/20 12:17 08/14/20 12:17 08/14/20 12:17 08/14/20 12:17
[2020-08-14 14:19] LABS: ABSOLUTE LYMPHOCYTES (AUTO) 2.1 10^3/uL (0.5-4.7); ABSOLUTE MONOCYTES (AUTO) 1.1 10^3/uL (0.1-1.4); ABSOLUTE NEUT (AUTO) 8.3 10^3/uL (1.7-8.2); BASOPHILS % (AUTO) 0.3 % (0-2); EOSINOPHILS % (AUTO) 0.3 % (0-6); HEMATOCRIT 34.8 % (36.0-47.0); LYMPHOCYTES % (AUTO) 18.4 % (13-45); MEAN CORPUSCULAR HEMOGLOBIN 31.4 pg (27.0-33.4); MEAN CORPUSCULAR HGB CONC 34.3 g/dL (32.0-36.0); MEAN CORPUSCULAR VOLUME 92 fl (80-97); MONOCYTES % (AUTO) 9.5 % (3-13); PLATELET COUNT 314 10^3/uL (150-450); RED CELL DISTRIBUTION WIDTH 13.3 % (11.5-14.0); SEGMENTED NEUTROPHILS % (AUTO) 71.5 % (42-78); TOTAL CELLS COUNTED % (AUTO) 100 %; WHITE BLOOD COUNT 11.7 10^3/uL (4.0-10.5)
[2020-08-14 14:40] LABS: ALBUMIN 4.3 g/dL (3.5-5.0); ALKALINE PHOSPHATASE 76 U/L (38-126); ANION GAP 6 (5-19); ASPARTATE AMINO TRANSFERASE 22 U/L (14-36); BILIRUBIN,DIRECT 0.2 mg/dL (0.0-0.4); BILIRUBIN,TOTAL 0.7 mg/dL (0.2-1.3); BLOOD UREA NITROGEN 14 mg/dL (7-20); CALCIUM 9.4 mg/dL (8.4-10.2); CARBON DIOXIDE 25 mmol/L (22-30); CHLORIDE 110 mmol/L (98-107); GLUCOSE 89 mg/dL (75-110); TOTAL PROTEIN 7.5 g/dL (6.3-8.2)
[2020-08-14] MEDS ORDERED: DEXAMETHASONE SOD PHOSPHATE INJ 4 MG/1 ML VIAL ONE (15:35)
--- NOTE | 2020-08-14 15:45 | RADIOLOGY REPORT (SQ) ---
EXAM DESCRIPTION: CT SOFT TISSUE NECK WITH IMAGES COMPLETED DATE/TIME: 08/14/2020 2:12 pm REASON FOR STUDY: Dysphagia, peritonsillar abscess COMPARISON: None. TECHNIQUE: Post IV contrasted scanning from skull base through lung apices with review of bone, soft tissue and lung windows. Reconstructed coronal and sagittal MPR images reviewed. All images stored on PACS. All CT scanners at this facility use dose modulation, iterative reconstruction, and/or weight based d osing when appropriate to reduce radiation dose to as low as reasonably achievable (ALARA). [facility]: Dose Right [facility]: CareDose [facility]: Dose Right [facility]: Teradose 4D [facility]: [place] REI CONTRAST TYPE AND DOSE: contrast/concentration: Isovue 350.00 mmol/ml; Total Contrast Delivered: 75. 0 ml; Total Saline Delivered: 55.0 ml RENAL FUNCTION: None required. The patient is less than 50 years old. RADIATION DOSE: . LIMITATIONS: None. FINDINGS: SKULL BASE: Intact. MAJOR SALIVARY GLANDS: No solid or cystic masses. No inflammatory changes. LYMPHADENOPATHY: Small left cervical lymph nodes measuring maximum 7 mm short axis diameter. MUCOSAL MASSES OR ASYMMETRY: There is a small left peritonsillar abscess measuring 1.3 x 1.2 cm. Oth erwise normal appearance of the tongue base and mucosa. No retropharyngeal fluid or paraspinous flui d or inflammatory change. LARYNX/CORDS: No abnormal findings. VASCULAR STRUCTURES: The major vessels are patent. LUNG APICES: Clear. BONES: Intact. THYROID: Normal size. No masses. PARANASAL SINUSES: Clear. OTHER: No other significant finding. IMPRESSION: Small left peritonsillar abscess. Reactive left cervical lymph nodes. TECHNICAL DOCUMENTATION: JOB ID: [id number] Quality ID # [id number]: Final reports with documentation of one or more dose reduction techniques (e.g., Au tomated exposure control, adjustment of the mA and/or kV according to patient size, use of iterative reconstruction technique) 2010 [employer]- All Rights Reserved Reading location - IP/workstation name: [email or web address]
[2020-08-14] MEDS ORDERED: AMPICILLIN SOD/SULBACTAM 3 GM VIAL IV ONE (16:30)
[2020-08-14] MEDS ORDERED: ACETAMINOPHEN 325 MG TABLET PO ONE (16:31)
--- NOTE | 2020-08-14 16:43 | ER Document Report ---
Entered by MACIEJ WALTERS SCRIBE 08/14/20 0026 Acting as scribe for:STANLEY HOLDER DO ED ENT - General Chief Complaint: Sore Throat Stated Complaint: SORE THROAT,SWELLING Time Seen by Provider: 08/14/20 13:23 Primary Care Provider: MARGARITA STEPHENSON MD [Primary Care Provider] - Follow up as needed Mode of Arrival: Ambulatory Information source: Patient Notes: This 29 year old female patient presents to the emergency department today with a sore throat for the past x3 days. Patient reports pain with swallowing and increased swelling today. Patient reports history of a tonsillectomy and adenoidectomy. Patient states her new PCP is Dr. Stephenson and is making an appointment soon for a routine check up. Denies any allergies to antibiotics. TRAVEL OUTSIDE OF THE [place] IN LAST 30 DAYS: No - Related Data Allergies/Adverse Reactions: No Known Allergies Allergy (Verified 02/21/18 09:35) Past Medical History - General Information source: Patient - Social History Smoking Status: Never Smoker Cigarette use (# per day): No Family History: Reviewed & Not Pertinent, Other - Ulcerative colitis diverticulitis, gluten allergy Neurological Medical History: Reports: Hx Migraine GI Medical History: Reports: Hx Colonoscopy - 2 polyps removed, Hx Endoscopy Past Surgical History: Reports: Hx Adenoidectomy, Hx Tonsillectomy - T&A - Immunizations Hx Diphtheria, Pertussis, Tetanus Vaccination: Yes Review of Systems - Review of Systems Constitutional: No symptoms reported EENT: See HPI, Throat pain, Throat swelling Cardiovascular: No symptoms reported Respiratory: No symptoms reported Gastrointestinal: No symptoms reported Genitourinary: No symptoms reported Female Genitourinary: No symptoms reported Musculoskeletal: No symptoms reported Skin: No symptoms reported Hematologic/Lymphatic: No symptoms reported Neurological/Psychological: No symptoms reported -: Yes All other systems reviewed and negative Physical Exam - Vital signs Vitals: Temp Pulse Resp BP Pulse Ox 98.4 F 98 16 136/79 H 98 08/14/20 12:17 08/14/20 12:17 08/14/20 12:17 08/14/20 12:17 08/14/20 12:17 - General General appearance: Appears well, Alert - HEENT Head: Normocephalic, Atraumatic Eyes: Normal Pupils: PERRL Ears: Normal External canal: Normal Tympanic membrane: Normal Notes: Fullness to the left peritonsillar pillow. Uvula is midline with no shift. Voice is not muffled. - Respiratory Respiratory status: No respiratory distress Chest status: Nontender Breath sounds: Normal Chest palpation: Normal - Cardiovascular Rhythm: Regular Heart sounds: Normal auscultation Murmur: No - Abdominal Inspection: Normal Distension: No distension Bowel sounds: Normal Tenderness: Nontender - Extremities General upper extremity: Normal inspection, Normal ROM General lower extremity: Normal inspection, Normal ROM. 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 She will follow up at urgent care or here tomorrow if worse. Work note for the am. 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 Take medicine as directed. Please return here for increased pain, difficulty swallowing, or other problems or concerns. Take antibiotic as directed. Prescriptions: Amoxicillin/Potassium Clav [Augmentin 875-125 Tablet] 1 tab PO Q12 #20 tablet Amoxicillin/Potassium Clav [Augmentin 875-125 Tablet] 1 tab PO BID #20 tab Dexamethasone [Decadron 4 Mg Tablet] 8 mg PO DAILY 2 Days #4 tablet Dexamethasone [Decadron 4 Mg Tablet] 8 mg PO DAILY #4 tablet Forms: Return to Work Referrals: MRAGARITA STEPHENSON MD [Primary Care Provider] - Follow up as needed I personally performed the services described in the documentation, reviewed and edited the documentation which was dictated to the scribe in my presence, and it accurately records my words and actions.
[2020-08-14 18:35] VITALS: BP 115/74
== END 2020-08-14 18:35 | disposition home or self-care (01) ==
LOC: ER 12:12
DX: J36 Peritonsillar abscess (principal)
CPT/HCPCS: 99285; 96375; 96365; 36415; 84703; 85025; 80053; 70491; J1100; J0295